=== PATIENT | male | born 1975 | race Caucasian/White ===

== ENCOUNTER 2018-05-15 20:35 | Emergency (ER) | payer OTHER ==
[~2018-05-15] VITALS: Ht 177.8 cm; Wt 115.8 kg
[~2018-05-15 20:35] MED LIST: AZIT250T PO; DIAZ5TAB PO; IBUP800T48 PO
[2018-05-15 20:39] VITALS: Ht 177.8 cm; Wt 115.8 kg
[2018-05-15] MEDS ORDERED: SOD CHLORIDE 0.9% 1,000 ML IV STA (21:12)
[2018-05-15] MEDS ORDERED: HYDROmorphONE 1 MG/ML SYG IV STA (21:12)
[2018-05-15] MEDS ORDERED: KETOROLAC 15 MG INJ IV STA (21:12)
[2018-05-15] MEDS ORDERED: ONDANSETRON 4 MG INJ IV STA (21:12)
[2018-05-15] MEDS ORDERED: HYDROmorphONE 0.5 MG/0.5 ML SYG IV STA (22:13)
[2018-05-15] MEDS ORDERED: OMEP20CA16 PO (22:42)
--- NOTE | 2018-05-15 22:50 | ERD ---
ER Documentation Chief Complaint Chief Complaint R flank pain X 1 hr after eating BBQ HPI 43-year-old gentleman who presents to the emergency room with sudden onset right flank and right lower quadrant abdominal pain. He does have a history of cholelithiasis but states this pain feels different. The pain is 10 out of 10. He does note scant hematuria as well. He denies any fevers or chills, nausea vomiting or diarrhea. This did occur approximately 1 hour after eating barbecue. ROS All systems reviewed and are negative except as per history of present illness. Medications Home Meds Active Scripts Naloxone HCl nasal spray (Narcan 4 mg/0.1 mL nasal) 4 Mg [place], 4 MG NS .Q2-3MIN for OPIOID OVERDOSE, #2 SPRAY 0 Refills [place] 0.1 mL into one nostril. Repeat with second device into other nostril after 2-3 minutes if no or minimal response Prov:DANIEL MERIDA MD 05/15/18 Ibuprofen* (Motrin*) 800 Mg Tab, 800 MG PO Q6H PRN for PAIN AND OR ELEVATED TEMP, #30 TAB Prov:DANIEL MERIDA MD 05/15/18 Tamsulosin Hcl* (Flomax*) 0.4 Mg Cap.er.24h, 0.4 MG PO QPM for 4 Days, CAP Prov:DANIEL MERIDA MD 05/15/18 Ondansetron (Ondansetron Odt) 4 Mg Tab.rapdis, 4 MG PO Q6H PRN for NAUSEA AND/OR VOMITING, #10 TAB Prov:DANIEL MERIDA MD 05/15/18 Hydrocodone/Acetaminophen ([place] 10-325 Tablet) 1 Each Tablet, 1 TAB PO Q6H PRN for PAIN, #12 TAB Prov:DANIEL MERIDA MD 05/15/18 Reported Medications Omeprazole* (Omeprazole*) 20 Mg Capsule.dr, 20 MG PO DAILY, #30 CAP 05/15/18 Discontinued Scripts Diazepam* (Valium*) 5 Mg Tablet, 5 MG PO Q8 PRN for MUSCLE SPASMS, #10 TAB Prov:DEO HU NP 10/25/15 Ibuprofen* (Motrin*) 800 Mg Tab, 800 MG PO Q8 PRN for PAIN AND OR ELEVATED TEMP, #30 TAB Prov:FRITZDEODONTAE Clancy NP 10/25/15 Ibuprofen* (Motrin*) 800 Mg Tab, 800 MG PO Q6H PRN for PAIN AND OR ELEVATED TEMP, #20 TAB Prov:ARMIN HOGAN MD 09/04/15 Azithromycin* (Zithromax*) 250 Mg Tablet, 250 MG PO .ZPACK DIRECTED, #6 TAB TAKE 500 MG (2 TABS) THE FIRST DAY THEN 250 MG (1 TAB) DAYS 2-5 Prov:ARMIN HOGAN MD 09/04/15 Allergies Allergies: Coded Allergies: No Known Allergy (Unverified , 05/15/18) PMhx/Soc Medical and Surgical Hx: pt denies Medical Hx, pt denies Surgical Hx Hx Miscellaneous Medical Probl: Yes (GALLSTONES) Hx Alcohol Use: No Hx Substance Use: No Hx Tobacco Use: No Smoking Status: Never smoker FmHx Family History: No diabetes Physical Exam Vitals Vital Signs Date Temp Pulse Resp B/P (MAP) Pulse Ox O2 O2 Flow FiO2 Time Delivery Rate 05/15/18 98.4 82 16 159/106 98 Room Air 21:49 (123) 05/15/18 99.1 100 18 185/103 99 20:39 (130) Physical Exam General: Uncomfortable, yelling and screaming Head: Normocephalic, atraumatic. Eyes: Pupils equally reactive, EOM intact ENT: Moist mucous membranes Neck: Supple, no lymphadenopathy Respiratory: Lungs clear bilaterally, no distress Cardiovascular: RRR, no murmurs, rubs, or gallops Abdominal: Soft, non-tender, non-distended, no peritoneal signs : Deferred MSK: No edema, no unilateral swelling, 5/5 strength Neurologic: Alert and oriented, moving all extremities, normal speech, no focal weakness, no cerebellar signs Skin: No rash Psych: Normal mood Result Diagram: 05/15/18211305/15/182113 Results 24 hrs Laboratory Tests Test 05/15/18 21:14 05/15/18 21:47 White Blood Count 10.4 10^3/ul Red Blood Count 5.75 10^6/ul Hemoglobin 16.8 g/dl Hematocrit 50.8 % Mean Corpuscular Volume 88.3 fl Mean Corpuscular Hemoglobin 29.2 pg Mean Corpuscular Hemoglobin Concent 33.1 g/dl Red Cell Distribution Width 12.8 % Platelet Count 341 10^3/UL Mean Platelet Volume 9.3 fl Immature Granulocytes % 0.300 % Neutrophils % 47.3 % Lymphocytes % 40.2 % Monocytes % 9.7 % Eosinophils % 1.9 % Basophils % 0.6 % Nucleated Red Blood Cells % 0.0 /100WBC Immature Granulocytes # 0.030 10^3/ul Neutrophils # 4.9 10^3/ul Lymphocytes # 4.2 10^3/ul Monocytes # 1.0 10^3/ul Eosinophils # 0.2 10^3/ul Basophils # 0.1 10^3/ul Nucleated Red Blood Cells # 0.0 10^3/ul Sodium Level 142 mmol/L Potassium Level 4.2 mmol/L Chloride Level 102 mmol/L Carbon Dioxide Level 26 mmol/L Anion Gap 14 Blood Urea Nitrogen 17 mg/dl Creatinine 1.14 mg/dl Est Glomerular Filtrat Rate mL/min > 60 mL/min Glucose Level 198 mg/dl Calcium Level 9.9 mg/dl Total Bilirubin 0.2 mg/dl Direct Bilirubin 0.00 mg/dl Indirect Bilirubin 0.2 mg/dl Aspartate Amino Transf (AST/SGOT) 45 IU/L Alanine Aminotransferase (ALT/SGPT) 58 IU/L Alkaline Phosphatase 94 IU/L Total Protein 8.2 g/dl Albumin 5.1 g/dl Globulin 3.10 g/dl Albumin/Globulin Ratio 1.64 Lipase 143 U/L Urine Color DAR Urine Clarity CLOUDY Urine pH 5.0 Urine Specific [place] 1.032 Urine Ketones NEGATIVE mg/dL Urine Nitrite NEGATIVE mg/dL Urine Bilirubin NEGATIVE mg/dL Urine Urobilinogen NEGATIVE mg/dL Urine Leukocyte Esterase NEGATIVE [place]/ul Urine Microscopic RBC > 182 /HPF Urine Microscopic WBC 0 /HPF Urine Calcium Oxalate Crystals FEW /HPF Urine Mucus MODERATE /HPF Urine Hemoglobin 3+ mg/dL Urine Glucose NEGATIVE mg/dL Urine Total Protein 2+ mg/dl Current Medications Medications Dose Sig/Pretty Start Time Status Last (Trade) Ordered Route PRN Stop Time Admin Dose Reason Admin Sodium 1,000 ml @ Q1H STAT 05/15/18 DC 05/15/18 Chloride 1,000 mls/hr IV 21:12 21:20 05/15/18 22:11 1 mg ONCE STAT 05/15/18 DC 05/15/18 Hydromorphone IV 21:12 21:20 HCl 05/15/18 21:13 (Dilaudid) Ondansetron 4 mg ONCE STAT 05/15/18 DC 05/15/18 HCl (Zofran IV 21:12 21:18 Inj) 05/15/18 21:13 Ketorolac 15 mg ONCE STAT 05/15/18 DC 05/15/18 Tromethamine IV 21:12 21:18 (Toradol) 05/15/18 21:13 1 mg ONCE STAT 05/15/18 DC Hydromorphone IV 22:13 HCl 05/15/18 22:14 (Dilaudid) 1 tab ONCE ONCE 05/16/18 Acetaminophen PO 00:00 / 05/16/18 00:01 Hydrocodone Bitart ([place] (10/325)) Tamsulosin 0.4 mg ONCE ONCE 05/16/18 HCl PO 00:00 (Flomax) 05/16/18 00:01 Procedures/MDM EKG, MONITORS, & DIAGNOSTIC IMAGING: Gallbladder ultrasound: IMPRESSION: Mild hepatomegaly with fatty liver. Single calcified stone within the gallbladder. CT abdomen and pelvis IMPRESSION: Hepatic steatosis. Cholelithiasis. Mild right hydronephrosis and 4 mm calculus in distal right ureter at the level ureterovesicle junction with mild right periureteral and perinephric soft tissue stranding. 2 approximate 2 mm nonobstructing calcifications in right kidney. Left hydrocele partially imaged. Small left inguinal hernia containing fat only. Very small right inguinal hernia containing fat only. Please see above. RPTAT: [facility] LAB INTERPRETATION: * No signs of hepatobiliary obstruction. * Hematuria is noted on urinalysis MEDICAL DECISION MAKING: Patient presents with sudden onset colicky right flank pain. This is likely consistent with ureteral colic. The patient does have gallbladder and gallstone history. Consider possible cholelithiasis, biliary colic but less likely given the patient's location of symptoms. CT imaging and ultrasound imaging appropriate. ER COURSE: * The patient was treated with IV fluids and IV pain medication. * The patient did require repeat dosing. * The patient refused second dose of IV narcotics. [place] provided. At this point the patient is a 4 mm stone, trial of passage would be appropriate. Outpatient urology follow-up recommended. CONSULTATION: None DISPOSITION PLAN: The patient does not have an identifiable emergent medical condition that warrants inpatient hospitalization at this time. The patient is deemed safe for discharge with outpatient follow-up. We discussed follow up with the patient's primary care doctor within 24 to 48 ho urs as needed. We also discussed return to the emergency room for worsening symptoms or worsening condition. Outpatient referral: Urology Discharge Medications: [place], Zofran, Motrin, Narcan,Flomax NARCOTIC MEDICATION: The patient has been prescribed a narcotic medication during this encounter. The patient has been warned about the use of narcotics. The patient should not drive or operate heavy machinery while taking this medication. The patient was also warned about the addictive properties of narcotic medications. Narcan prescription WAS provided given one of the following criteria were met: 1. More than 5 tablets of [place] 10 mg or 10 tablets of [place] 5 mg were prescribed. 2. Concomitant opiate and benzodiazepine prescriptions were provided. 3. There is evidence of prior history of opiate abuse or overdose. Departure Diagnosis: Primary Impression: Ureteral calculus, right Condition: Stable DANIEL MERIDA MD May 15, 2018 22:50
[2018-05-15] MEDS ORDERED: ONDA4TAB14 PO (23:35)
[2018-05-15] MEDS ORDERED: IBUP800T48 PO (23:35)
[2018-05-15] MEDS ORDERED: NALO4SPR NS (23:35)
[2018-05-15] MEDS ORDERED: HYDR-3980 PO (23:35)
[2018-05-15] MEDS ORDERED: TAMS-14 PO (23:35)
[2018-05-16] MEDS ORDERED: TAMSULOSIN (SR) 0.4 MG CAP PO ONE
[2018-05-16] MEDS ORDERED: HYDROCODONE/APAP (10/325) TAB PO ONE
[2018-05-16 00:22] VITALS: BP 114/76; PULSE 78; RESP 16
== END 2018-05-16 00:23 | disposition home or self-care (01) ==
LOC: E/R 20:35
DX: N20.1 Calculus of ureter (principal)
CPT/HCPCS: 36415; 74176; 76705; 80053; 81001; 83690; 85025; 87086; 96374; 96375; J1170; J1885; J2405; J7030; Z7502; Z7610

== ENCOUNTER 2018-12-01 12:53 | Emergency (ER) | payer OTHER ==
[~2018-12-01] VITALS: Ht 177.8 cm; Wt 117.1 kg
[~2018-12-01 12:53] MED LIST changes: -AZIT250T PO; -DIAZ5TAB PO; +HYDR-3980 PO; +IBUP-1542 PO; +NALO4SPR NS; +OMEP20CA16 PO; +ONDA4TAB14 PO; +TAMS-14 PO
[2018-12-01 13:05] VITALS: Ht 177.8 cm; Wt 117.1 kg
--- NOTE | 2018-12-01 15:20 | ERD ---
ER Documentation Chief Complaint Chief Complaint ABD PAIN, ON AND OFF X4 DAYS, NO N/V HPI The patient is a 43-year-old male, presenting to the ER because of chronic abdominal pain, intermittent pain for the last 4 days, worse with eating, the pain is localized to right upper quadrant radiating to the right upper back, has similar symptoms previously, denies fever, chills, neck pain, chest pain, dyspnea, vomiting, dysuria, diarrhea, constipation. He smokes and drinks Past medical history: BPH, cholelithiasis, history of kidney stones Past surgical history: None ROS All systems reviewed and are negative except as per history of present illness. Medications Home Meds Active Scripts Ibuprofen* (Motrin*) 600 Mg Tab, 600 MG PO Q6H PRN for PAIN AND OR ELEVATED TEMP, #30 TAB Prov:NAHEED FLORES MD 12/01/18 Naloxone HCl nasal spray (Narcan 4 mg/0.1 mL nasal) 4 Mg [place], 4 MG NS .Q2-3MIN for OPIOID OVERDOSE, #2 SPRAY 0 Refills [place] 0.1 mL into one nostril. Repeat with second device into other nostril after 2-3 minutes if no or minimal response Prov:DANIEL MERIDA MD 05/15/18 Ibuprofen* (Motrin*) 800 Mg Tab, 800 MG PO Q6H PRN for PAIN AND OR ELEVATED TEMP, #30 TAB Prov:DANIEL MERIDA MD 05/15/18 Tamsulosin Hcl* (Flomax*) 0.4 Mg Cap.er.24h, 0.4 MG PO QPM for 4 Days, CAP Prov:DANIEL MERIDA MD 05/15/18 Ondansetron (Ondansetron Odt) 4 Mg Tab.rapdis, 4 MG PO Q6H PRN for NAUSEA AND/OR VOMITING, #10 TAB Prov:DANIEL MERIDA MD 05/15/18 Hydrocodone/Acetaminophen ([place] 10-325 Tablet) 1 Each Tablet, 1 TAB PO Q6H PRN for PAIN, #12 TAB Prov:DANIEL MERIDA MD 05/15/18 Reported Medications Omeprazole* (Omeprazole*) 20 Mg Capsule.dr, 20 MG PO DAILY, #30 CAP 05/15/18 Allergies Allergies: Coded Allergies: No Known Allergy (Unverified , 05/15/18) PMhx/Soc Hx Miscellaneous Medical Probl: Yes (GALLSTONES) Hx Alcohol Use: No Hx Substance Use: No Hx Tobacco Use: No Physical Exam Vitals Vital Signs Date Temp Pulse Resp B/P (MAP) Pulse Ox O2 O2 Flow FiO2 Time Delivery Rate 12/01/18 98.3 74 16 120/78 98 Room Air 18:44 (92) 12/01/18 79 16 122/78 98 Room Air 18:00 (93) 12/01/18 97.6 96 18 147/84 98 13:05 (105) Physical Exam Const: No acute distress. Head: Atraumatic. Eyes: Normal Conjunctiva. ENT: Normal External Ears, Nose and Mouth. Neck: Full range of motion. No meningismus. Resp: Clear to auscultation bilaterally. Cardio: Regular rate and rhythm. Abd: Soft, non distended, normal bowel sounds, non tender. Skin: No petechiae or rashes. Back: No midline or flank tenderness. Ext: No cyanosis, or edema. Neur: Awake and alert. No focal deficit Psych: Normal Mood and Affect. Result Diagram: 12/01/18 1617 12/01/18 1617 Results 24 hrs Laboratory Tests Test 12/01/18 16:07 12/01/18 16:17 Bedside Urine pH (LAB) 5.0 Bedside Urine Protein (LAB) 2+ Bedside Urine Glucose (UA) Negative Bedside Urine Ketones (LAB) Negative Bedside Urine Blood Negative Bedside Urine Nitrite (LAB) Negative Bedside Urine Leukocyte Esterase (L Negative White Blood Count 9.0 10^3/ul Red Blood Count 5.77 10^6/ul Hemoglobin 16.8 g/dl Hematocrit 52.0 % Mean Corpuscular Volume 90.1 fl Mean Corpuscular Hemoglobin 29.1 pg Mean Corpuscular Hemoglobin Concent 32.3 g/dl Red Cell Distribution Width 13.0 % Platelet Count 305 10^3/UL Mean Platelet Volume 9.3 fl Immature Granulocytes % 0.300 % Neutrophils % 52.0 % Lymphocytes % 34.8 % Monocytes % 9.8 % Eosinophils % 2.3 % Basophils % 0.8 % Nucleated Red Blood Cells % 0.0 /100WBC Immature Granulocytes # 0.030 10^3/ul Neutrophils # 4.7 10^3/ul Lymphocytes # 3.1 10^3/ul Monocytes # 0.9 10^3/ul Eosinophils # 0.2 10^3/ul Basophils # 0.1 10^3/ul Nucleated Red Blood Cells # 0.0 10^3/ul Sodium Level 140 mmol/L Potassium Level 4.4 mmol/L Chloride Level 100 mmol/L Carbon Dioxide Level 30 mmol/L Anion Gap 10 Blood Urea Nitrogen 19 mg/dl Creatinine 0.84 mg/dl Est Glomerular Filtrat Rate mL/min > 60 mL/min Glucose Level 96 mg/dl Calcium Level 9.6 mg/dl Total Bilirubin 0.4 mg/dl Direct Bilirubin 0.00 mg/dl Indirect Bilirubin 0.4 mg/dl Aspartate Amino Transf (AST/SGOT) 50 IU/L Alanine Aminotransferase (ALT/SGPT) 72 IU/L Alkaline Phosphatase 86 IU/L Total Protein 8.1 g/dl Albumin 4.8 g/dl Globulin 3.30 g/dl Albumin/Globulin Ratio 1.45 Lipase 130 U/L Current Medications Medications Dose Sig/Pretty Start Time Status Last (Trade) Ordered Route PRN Stop Time Admin Dose Reason Admin Ketorolac 30 mg ONCE STAT 12/01/18 DC 12/01/18 Tromethamine IV 15:40 16:16 (Toradol) 12/01/18 15:41 Procedures/MDM MEDICAL MAKING DECISION: The patient is a 43-year-old male, presenting with acute biliary colic, treated with Toradol 30 mg IV for pain with good response, is stable for outpatient follow-up The differential diagnoses considered include but are not limited to cho lelithiasis, cholecystitis, choledocholithiasis, cholangitis, pancreatitis, hepatitis, gastritis, peptic ulcer disease, gastric ulcer, appendicitis, cystitis, diverticulitis, partial small bowel obstruction. Departure Diagnosis: Primary Impression: Biliary colic Condition: Good Comments The patient's blood pressure was elevated (>120/80) but appears stable without evidence of hypertension emergency or urgency. The patient was counseled about the risks of hypertension and urged to pursue outpatient monitoring and therapy within a week with their primary care physician. I discussed the findings with the patient. I advised the patient to follow-up with the primary physician and the surgeon Dr Kohler in about 1-2 days, sooner if needed and return if any concern. Disclaimer: Inadvertent spelling and grammatical errors are likely due to EHR/dictation software use and do not reflect on the overall quality of patient care. Also, please note that the electronic time recorded on this note does not necessarily reflect the actual time of the patient encounter. NAHEED FLORES MD Dec 01, 2018 15:20
[2018-12-01] MEDS ORDERED: KETOROLAC 30 MG INJ IV STA (15:40)
[2018-12-01 18:44] VITALS: BP 120/78; PULSE 74; RESP 16
== END 2018-12-01 18:45 | disposition home or self-care (01) ==
LOC: E/R 12:53
DX: K80.20 Calculus of gallbladder without cholecystitis without obstruction (principal)
CPT/HCPCS: 36415; 80053; 81003; 83690; 85025; 96374; J1885; Z7502